=== PATIENT | female | born 1975 | race Caucasian/White ===

== ENCOUNTER 2019-10-31 11:15 | Emergency (ER) | payer BC, SELFPAY ==
[2019-10-31 11:18] VITALS: BP 210/113; PULSE 85; RESP 20; TEMP 37.1; O2SAT 96; BMI 43.4
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
[2019-10-31 12:18] VITALS: BP 187/113
[2019-10-31 12:30] VITALS: BP 177/84; PULSE 90; RESP 22; O2SAT 96
[2019-10-31 12:34] LABS: Microscopic, Urine URINE MICROSCOPIC (MICROSCOPIC)
[2019-10-31 12:37] LABS: Appearance,Urine CLEAR (Clear); Bilirubin,Urine Negative (Negative); Blood, Urine Negative (Negative); Color,Urine YELLOW (Yellow); Glucose,Urine (UA) Negative (Negative); Ketones,Urine Negative (Negative); Leukocyte Esterase,Urine Negative (Negative); Nitrate,Urine Negative (Negative); Protein,Urine Negative (Negative); Urobilinogen,Urine 0.2 EU/dl (0.2)
[2019-10-31 12:44] LABS: RBC,Urine Occasional #/hpf (0-3); Squamous Epithelial Cell,Urine Occasional #/hpf (0-5)
[2019-10-31 13:00] VITALS: BP 160/95; PULSE 88; RESP 22; O2SAT 97
[2019-10-31 13:30] VITALS: BP 158/88; PULSE 78; RESP 20; O2SAT 97
[2019-10-31 14:13] VITALS: BP 158/88; PULSE 78; RESP 20; TEMP 36.7; O2SAT 97
== END 2019-10-31 14:15 | disposition home or self-care (01) ==
PROVIDERS: Emergency Provider Emergency Medicine
DX: S06.0X1A Concussion with loss of consciousness of 30 minutes or less, initial encounter (principal); S00.81XA Abrasion of other part of head, initial encounter; M54.2 Cervicalgia; M25.552 Pain in left hip; M25.512 Pain in left shoulder; R07.81 Pleurodynia; Z88.6 Allergy status to analgesic agent; Y04.2XXA Assault by strike against or bumped into by another person, initial encounter; Y92.019 Unspecified place in single-family (private) house as the place of occurrence of the external cause
CPT/HCPCS: 70496; 70498; 71046; 81001; 99283; Q9967

== ENCOUNTER 2021-12-10 20:25 | Emergency (ER) | payer BC, SELFPAY ==
[2021-12-10 20:53] VITALS: BP 152/103; PULSE 73; RESP 18; TEMP 36.6; O2SAT 98; BMI 55.7
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
--- NOTE | 2021-12-10 21:15 | PC.NURSE ---
Pt gone to RAD for xrays
--- NOTE | 2021-12-10 21:22 | HMH.EDUPEXT ---
Discharge Plan Disposition Patient Disposition: Home, Self-Care Prescriptions Prescriptions: New prednisone [prednisone] 20 mg tablet 20 mg PO BID Qty: 10 0RF Referrals Follow up/Referrals: Elpidio Marques [Primary Care Provider] - See instructions Clinical Impressions Clinical Impression: Inflammation of joint Instructions Patient Instructions: DI for Joint Pain Discharge ED Provider: Yo Paul Upper Extremity HPI General Chief Complaint: Extremity Injury, Upper Stated Complaint: r HAND SWOLLEN AND PAIN Time Seen by Provider: 12/10/21 21:22 Mode of Arrival: Ambulatory Source of Information: Patient and Medical Record Limitations: No Limitations Description of Symptoms (Recalled from ER Triage Doc. by RN): pt states that for the prior 2 days she has been having pain in her right hand along that lateral aspect of her thumb down her wrist. Denies any trauma or injury to hand,states that 2 days ago the pain started and has since gotten worse. Today the pain has gotten severe today and states that the pain is a burning sensation. History of Present Illness HPI narrative: atraumatic rt wrist pain with reddness and swollen first mcp jt over the last few days w/o relief with otc meds MD complaint: injury to: right, wrist and hand Onset (ago): day(s) Other Extremity Injury: Right: hand and wrist Other injuries: none Handedness: right Place: home Severity: moderate Exacerbating factors: movement of extremity Associated symptoms: denies other symptoms Related Data Previous Rx's Medication Instructions Recorded prednisone 20 mg tablet 20 mg PO BID #10 tabs 12/10/21 Allergies Allergy/AdvReac Type Severity Reaction Status Date / Time latex Allergy Verified 12/10/21 21:30 acetaminophen [From Percocet] AdvReac Verified 12/10/21 21:30 oxycodone [From Percocet] AdvReac Verified 12/10/21 21:30 PFSH PFSH Social History Smoking Status: Current every day smoker alcohol intake: never current occupational status: employed Travel in the last 8 weeks: None ROS Obtained: Yes All systems reviewed & no additional complaints except as documented no hx of gout Physical Exam General General appearance: alert Head Head exam: normocephalic Eye Eye exam: Present PERRL and EOMI ENT ENT exam: Present mucous membranes moist Neck Neck exam: Present trachea midline Respiratory Respiratory exam: Absent respiratory distress Cardiovascular Cardiovascular exam: Present regular rate Expanded Upper Extremity Exam Right: Hand exam: Present tenderness, swelling, erythema and other (rt first mcp); Absent full ROM Vascular exam: Normal radial pulse Neurological Exam Neurological exam: Present alert, oriented X3 and CN II-XII intact Skin Skin exam: Absent rash Medical Decision Making Medical Records Medical records reviewed: Yes I reviewed the patient's medical records. Joseph Inquiry Pt receiving controlled substance: No Vital Signs: 12/10/21 20:53 Temperature 98 F Temperature Source Oral Pulse Rate [Apical] 73 Respiratory Rate 18 Blood Pressure [Right Arm] 152/103 H Blood Pressure Mean [Right Arm] 119 Blood Pressure Source [Right Arm] Automatic Cuff Blood Pressure Position [Right Arm] Supine 02 Sat by Pulse Oximetry 98 Oxygen Delivery Method Room Air Lab Data Lab results reviewed: Yes I reviewed the patient's lab results. Orders (Tests/Meds): ORDERS Category Date Time Status Forearm XR right 2 views [XR forearm RT 2V] Stat Exams 12/10/21 21:01 Taken XR hand RT min 3V Stat Exams 12/10/21 21:01 Taken XR wrist RT min 3V Stat Exams 12/10/21 21:01 Taken Radiology Data #1: Image(s): Forearm, Wrist and Hand Image Reviewed: Yes I have reviewed radiologist's interpretation Preliminary Findings: No Fracture Seen Medical Decision Narrative: acute inflamation rt prox thumb with neurovascular ok - will check labs and treat as inflammation
[2021-12-10 21:49] LABS: Basophils # 0.1 K/mm3 (0-0.2); Basophils % 0.9 % (0.1-2.0); Eosinophils # 0.3 K/mm3 (0.0-0.4); Eosinophils % 2.7 % (0.1-12.0); Hematocrit 42.9 % (37.0-47.0); Hemoglobin 13.9 g/dL (12.2-16.2); Lymphocytes # 3.3 K/mm3 (0.7-4.5); Lymphocytes % 28.1 % (10-50); Mean Corpuscular HGB Conc 32.5 g/dL (31.8-35.4); Mean Corpuscular Hemoglobin 30.7 pg (27.0-31.2); Mean Corpuscular Volume 94.6 fl (81-99); Mean Platelet Volume 9.1 fl (7.4-10.4); Monocytes # 0.7 K/mm3 (0.1-1.0); Monocytes % 5.7 % (1.7-9.3); Neutrophils # 7.3 K/mm3 (1.8-7.8); Neutrophils % 62.7 % (37.0-80.0); Platelet Count 290 K/mm3 (142-424); Red Blood Count 4.53 M/mm3 (4.20-5.40); Red Cell Distribution Width 13.2 % (11.5-17.5); White Blood Count 11.6 K/mm3 (4.8-10.8)
[2021-12-10 21:56] VITALS: BP 138/68; PULSE 78; RESP 18; TEMP 36.6; O2SAT 98
[2021-12-10 21:58] LABS: Alanine Aminotransferase 31 U/L (12-78); Albumin/Globulin Ratio 1.4 (1.1-1.8); Alkaline Phosphatase 71 U/L (38-126); Anion Gap 8.8 mEq/L (5-15); Aspartate Amino Transferase 32 U/L (14-36); Blood Urea Nitrogen 12 mg/dl (7-17); Carbon Dioxide 28 mmol/L (22.0-30.0); Chloride 105 mmol/L (98-107); Creatinine Clearance Estimated 81 mL/min (50-200); Estimated Glomerular Filt Rate 89 ml/min (>60); GFR (African American) 108 ML/MIN (>60); Globulin 2.9 g/dL (1.3-3.2); Glucose 107 mg/dl (74-100); Potassium 3.8 mmoL/L (3.5-5.1); Sodium 138 mmol/L (136-145); Total Protein,Serum 6.9 g/dl (6.3-8.2)
[2021-12-10 22:17] LABS: Bilirubin,Total 0.1 mg/dl (0.2-1.3)
[2021-12-10 22:24] LABS: Erythrocyte Sedimentation Rate 20 mm/hr (0-20)
== END 2021-12-10 21:59 | disposition home or self-care (01) ==
PROVIDERS: Emergency Provider Emergency Medicine; PCP Family Medicine
DX: M25.531 Pain in right wrist (principal); M79.641 Pain in right hand; M79.89 Other specified soft tissue disorders; M19.90 Unspecified osteoarthritis, unspecified site; F17.210 Nicotine dependence, cigarettes, uncomplicated; Z88.5 Allergy status to narcotic agent; Z88.6 Allergy status to analgesic agent; Z88.8 Allergy status to other drugs, medicaments and biological substances; Z91.040 Latex allergy status
CPT/HCPCS: 73090; 73110; 73130; 80053; 84550; 85025; 85651; 96372; 99284

== ENCOUNTER 2022-02-17 13:45 | Emergency (ER) | payer BC, SELFPAY ==
[2022-02-17 15:25] VITALS: BP 160/98; PULSE 91; RESP 18; TEMP 36.7; O2SAT 98; BMI 55.7
--- NOTE | 2022-02-17 15:45 | EXP.UTC ---
Discharge Plan Disposition Patient Disposition: Home, Self-Care Condition: Good Prescriptions Prescriptions: New methocarbamol 500 mg tablet 500 mg PO TID PRN (Reason: muscle spasm) Qty: 15 0RF No Action fluoxetine 40 mg capsule 40 mg PO DAILY hydroxyzine HCl 10 mg tablet 10 mg PO DAILY bupropion HCl 300 mg tablet extended release 24 hr 300 mg PO DAILY Referrals Follow up/Referrals: Elpidio Marques [Primary Care Provider] - See instructions Activity Restrictions/Add. Instructions Additional Instructions/Restrictions: *Ibuprofen patric 6 hours with meal as needed for pain/inflammation *Remember you had a Toradol shot in the clinic today, which is similar to Motrin *Not additional anti-inflammatory like motrin, aleve, advil with the above amount of ibuprofen. You can still take Tylenol every 4 hours as needed if you need something else for pain *Ice 20 minutes every 2 hours for the first 48 hours after the initial injury followed by moist heat every 20 minutes 3-4 times a day to affected area *Muscle relaxer every 8 hours as needed for muscle spasms but remember, it WILL cause drowsiness You cannot take it and drive, operate machinery or care for small children. *Keep this area active, no movement leads to more stiffness, However take it easy and avoid heavy lifting pushing or pulling *Follow up with you family doctor if no improvement for further treatment Clinical Impressions Clinical Impression: Muscle spasm Instructions Patient Instructions: Low Back Pain, DI for Low Back Pain, DI for Muscle Spasm Discharge ED Provider: Ayanna Osuna [facility] General Stated complaint: No accident, back pain Mode of Arrival: Ambulatory Source of Information: Patient Limitations: No Limitations Time Seen by Provider: 02/17/22 15:45 Description of Symptoms (Recalled from Triage Doc. by RN): PATIENT C/O BACK PAIN, NO KNOWN INJURY HEENT Symptoms (Recalled from RN notes): No Resp Symptoms (Recalled from RN notes): No Skin Symptoms (Recalled from RN notes): No MS Symptoms (Recalled from RN notes): Yes Functional Status (Recalled from RN notes): WNL History of Present Illness Provider Complaint: Patient states that she has back issues States that the other day she was bending over gate to grab puppies and felt something pull in her lower back area States that she has been having muscle spasms in her lower back ever since States that she has tried several OTC medications but they havent helped so she came in to see if she could get a shot or something to help Related Data Home Medications Medication Instructions Recorded Confirmed bupropion HCl 300 mg 24 hr tablet, 300 mg PO DAILY Depression 02/17/22 02/17/22 extended release fluoxetine 40 mg capsule 40 mg PO DAILY Depression 02/17/22 02/17/22 hydroxyzine HCl 10 mg tablet 10 mg PO DAILY . 02/17/22 02/17/22 Previous Rx's Medication Instructions Recorded methocarbamol 500 mg tablet 500 mg PO TID PRN muscle spasm #15 02/17/22 tabs Allergies Allergy/AdvReac Type Severity Reaction Status Date / Time adhesive Allergy Verified 02/17/22 15:40 codeine Allergy Verified 02/17/22 15:40 latex Allergy Verified 12/10/21 21:30 acetaminophen [From Percocet] AdvReac Verified 12/10/21 21:30 oxycodone [From Percocet] AdvReac Verified 12/10/21 21:30 Worker's Comp Is this a Worker's Comp case?: No PFSH PFSH Medical History (Updated 02/17/22 @ 16:01 by Ayanna Osuna APRN) Hypertension Social History (Updated 02/17/22 @ 15:39 by Eugenia Culver RN) Smoking Status: Current every day smoker alcohol intake: never current occupational status: employed Travel in the last 8 weeks: None ROS Obtained: Yes All systems reviewed & no additional complaints except as documented and Yes Systems reviewed as appropriate & no additional complaints except as documented Constitutional Constitutional: Reports system reviewed and no additional com
[2022-02-17 16:28] VITALS: BP 160/98; PULSE 91; RESP 18; TEMP 36.7; O2SAT 98
== END 2022-02-17 16:32 | disposition home or self-care (01) ==
PROVIDERS: Emergency Provider Nurse Practitioner; PCP Family Medicine
DX: M62.838 Other muscle spasm (principal)
CPT/HCPCS: 96372; 99213; G0463